=== PATIENT | female | born 1940 | race Asian ===

== ENCOUNTER 2017-02-08 22:13 | Emergency (ER) | payer MEDICARE ==
[~2017-02-08] VITALS: Ht 165.1 cm; Wt 63.5 kg
[~2017-02-08 22:13] MED LIST: ACTOS15 MG ORAL; ATORVASTATIN CA20 MG ORAL; CEPHALEXIN500 MG ORAL; CIPROFLOXACIN500 M2 ORAL; DONEPEZIL HCL10 MG ORAL; GLIPIZIDE5 MG ORAL; LISINOPRIL20 MG ORAL; METFORMIN HCL1000 M1 ORAL; NAMENDA10 MG ORAL; PRANDIN1 MG ORAL; UNOBMED
[2017-02-08 22:30] VITALS: BP 122/53
[2017-02-08] MEDS ORDERED: SandoSTATIN 50mcg Inj SUBQ ONE (22:30)
[2017-02-08] MEDS ORDERED: GABAPENTIN100 MG ORAL (22:41)
[2017-02-08] MEDS ORDERED: GLIPIZIDE5 MG ORAL (22:41)
[2017-02-08] MEDS ORDERED: OMEPRAZOLE40 M1 ORAL (22:41)
[2017-02-08] MEDS ORDERED: CIPROFLOXACIN500 M2 ORAL (22:41)
[2017-02-08] MEDS ORDERED: DICYCLOMINE HCL10 MG PO (22:41)
[2017-02-08] MEDS ORDERED: MACRODANTIN50 MG ORAL (22:41)
[2017-02-08] MEDS ORDERED: ACTOS30 MG ORAL (22:41)
[2017-02-08] MEDS ORDERED: DONEPEZIL HCL10 M2 ORAL (22:41)
[2017-02-08] MEDS ORDERED: ATORVASTATIN CA20 MG ORAL (22:41)
[2017-02-08] MEDS ORDERED: IBUPROFEN600 MG ORAL (22:41)
[2017-02-08] MEDS ORDERED: LISINOPRIL20 MG ORAL (22:41)
[2017-02-08] MEDS ORDERED: OXYBUTYNIN CHLO15 MG PO (22:41)
[2017-02-08] MEDS ORDERED: METFORMIN HCL500 M1 ORAL (22:41)
[2017-02-08] MEDS ORDERED: D5 1/2NS 1,000 ML IV SCH (22:45)
[2017-02-08] MEDS ORDERED: Nitroglycerin Subl 0.4mg tab SL PRN (22:45)
[2017-02-08] MEDS ORDERED: Ketorolac 30mg Inj IV PRN (22:45)
[2017-02-08] MEDS ORDERED: Mylanta II UD 30ml ORAL PRN (22:45)
[2017-02-08] MEDS ORDERED: Morphine Sulfate 2mg/ml Inj IVP PRN (22:45)
[2017-02-08] MEDS ORDERED: Albuterol/Ipratropium 3ml neb HHN PRN (22:45)
[2017-02-08] MEDS ORDERED: Miralax 17gm pkt ORAL PRN (22:45)
--- NOTE | 2017-02-09 00:06 | Emergency Room Report ---
History of Present Illness General Chief Complaint: Altered Level of Consciousness Source: Family Member Present Illness HPI Patient is a 68-year-old female brought in by EMS after increased altered level of consciousness. Patient prior history of dementia. Patient was diabetic with type 2 diabetes. She was noted to have a blood sugar in the 20s by EMS. Patient had been given IV dextrose with improvement in her sugar. The patient had been taking metformin as well as sulfonurea, and a glitizone medication for low blood sugar. The patient had been reportedly eating normally. She is intermittently catheterizing performed by her Allergies: Coded Allergies: No Known Allergies (Unverified , 04/20/14) Patient History Past Medical History: see triage record Now: No Reviewed Nursing Documentation: PMH: Agreed, PSxH: Agreed Nursing Documentation-PMH Past Medical History: No History, Except For Hx Cardiac Problems: No Hx Hypertension: Yes Hx Diabetes: Yes Hx Cancer: No Hx Gastrointestinal Problems: No History Of Psychiatric Problem: Yes - Alz. Hx Cerebrovascular Accident: Yes Hx Dementia: Yes - per , pt is getting worst Review of Systems All Other Systems: limited - by mental status Physical Exam Vital Signs Date Time Temp Pulse Resp B/P (MAP) Pulse Ox O2 Delivery O2 Flow Rate FiO2 02/08/17 22:14 97.9 64 14 125/74 98 Room Air Sp02 EP Interpretation: reviewed, normal General Appearance: normal inspection, well appearing, no apparent distress, alert, Chronically Ill Head: atraumatic ENT: normal ENT inspection, hearing grossly normal, normal voice Neck: normal inspection, full range of motion, supple, no bony tend Respiratory: normal inspection, lungs clear, normal breath sounds, no respiratory distress, no retraction, no wheezing Cardiovascular #1: regular rate, rhythm, no edema Gastrointestinal: normal inspection, normal bowel sounds, non tender, soft, no guarding, no hernia Genitourinary: no CVA tenderness Musculoskeletal: normal inspection, back normal, normal range of motion Neurologic: normal inspection, alert, oriented x3, responsive, 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 The differential diagnosis included wasn't limited to sulfa area overdose, dietary indiscretion, sepsis among others. Because of complexity of patient's case laboratory testing and imaging studies were ordered.The patient was given subcutaneous octreotide. She was noted to have a recurrent hypoglycemia was given IV dextrose. The patient was noted to have a chest x-ray one view interpreted by me with cardiomegaly with calcified aorta without evident infiltrate. CT the head read by radiology showed atrophic changes without evidence of acute hemorrhage or ventricular megaly. Patient was given IV dextrose. The patient was discussed with Dr. Ayush Castro for [facility] physician. Labs Test 02/08/17 23:45 White Blood Count 6.3 K/UL (4.8-10.8) Red Blood Count 3.97 M/UL (4.20-5.40) Hemoglobin 12.3 G/DL (12.0-16.0) Hematocrit 37.4 % (37.0-47.0) Mean Corpuscular Volume 94 FL (80-99) Mean Corpuscular Hemoglobin 31.0 PG (27.0-31.0) Mean Corpuscular Hemoglobin Concent 32.9 G/DL (32.0-36.0) Red Cell Distribution Width 11.9 % (11.6-14.8) Platelet Count 152 K/UL (150-450) Mean Platelet Volume 8.2 FL (6.5-10.1) Neutrophils (%) (Auto) 73.7 % (45.0-75.0) Lymphocytes (%) (Auto) 17.6 % (20.0-45.0) Monocytes (%) (Auto) 7.3 % (1.0-10.0) Eosinophils (%) (Auto) 0.7 % (0.0-3.0) Basophils (%) (Auto) 0.7 % (0.0-2.0) Sodium Level 133 MMOL/L (136-145) Potassium Level 4.8 MMOL/L (3.5-5.1) Chloride Level 103 MMOL/L (98-107) Carbon Dioxide Level 22 MMOL/L (21-32) Anion Gap 8 mmol/L (5-15) Blood Urea Nitrogen 24 mg/dL (7-18) Creatinine 0.7 MG/DL (0.55-1.30) Estimat Glomerular Filtration Rate mL/min (>60) Glucose Level 89 MG/DL (74-106) Lactic Acid Level 2.40 mmol/L (0.66-2.22) Calcium Level 9.0 MG/DL (8.5-10.1) Total Bilirubin 0.3 MG/DL (0.2-1.0) Aspartate Amino Transf (AST/SGOT) 31 U/L (15-37) Alanine Aminotransferase (ALT/SGPT) 25 U/L (12-78) Alkaline Phosphatase 57 U/L (46-116) Total Creatine Kinase 207 U/L (26-308) Creatine Kinase MB 2.8 NG/ML (0.0-3.6) Creatine Kinase MB Relative Index 1.3 Troponin I < 0.017 ng/mL (0.000-0.056) Total Protein 7.3 G/DL (6.4-8.2) Albumin 3.2 G/DL (3.4-5.0) Globulin 4.1 g/dL Albumin/Globulin Ratio 0.8 (1.0-2.7) EKG Diagnostic Results Rate: normal - 61 Rhythm: NSR ST Segments: no acute changes Rhythm Strip Diag. Results EP Interpretation: yes Rhythm: NSR, no PVC's, no ectopy Last Vital Signs Date Time Temp Pulse Resp B/P (MAP) Pulse Ox O2 Delivery O2 Flow Rate FiO2 02/08/17 22:14 97.9 64 14 125/74 98 Room Air Status: improved [facility] Condition: Stable Referrals: NON PHYSICIAN (PCP) Iglesia Cavanaugh Feb 09, 2017 00:06
[2017-02-09 00:16] LABS: BASOPHILS % (AUTO) 0.7 % (0.0-2.0); EOSINOPHILS % (AUTO) 0.7 % (0.0-3.0); LYMPHOCYTES % (AUTO) 17.6 % (20.0-45.0); MEAN CORPUSCULAR HGB CONC 32.9 G/DL (32.0-36.0); MEAN CORPUSCULAR VOLUME 94 FL (80-99); MEAN PLATELET VOLUME 8.2 FL (6.5-10.1); MONOCYTES % (AUTO) 7.3 % (1.0-10.0); NEUTROPHILS % (AUTO) 73.7 % (45.0-75.0); PLATELET COUNT 152 K/UL (150-450); RED BLOOD COUNT 3.97 M/UL (4.20-5.40); RED CELL DISTRIBUTION WIDTH 11.9 % (11.6-14.8); WHITE BLOOD COUNT 6.3 K/UL (4.8-10.8)
[2017-02-09 00:25] VITALS: BP 108/53
[2017-02-09 00:30] VITALS: BP 108/53
[2017-02-09 00:32] LABS: ANION GAP 8 mmol/L (5-15); CARBON DIOXIDE 22 MMOL/L (21-32); CHLORIDE 103 MMOL/L (98-107); CREATININE 0.7 MG/DL (0.55-1.30); POTASSIUM 4.8 MMOL/L (3.5-5.1); SODIUM 133 MMOL/L (136-145)
[2017-02-09 00:44] LABS: ALANINE AMINOTRANSFERASE 25 U/L (12-78); ALBUMIN/GLOBULIN RATIO 0.8 (1.0-2.7); ASPARTATE AMINO TRANSFERASE 31 U/L (15-37); CKMB 2.8 NG/ML (0.0-3.6); TOTAL PROTEIN 7.3 G/DL (6.4-8.2)
[2017-02-09 00:52] LABS: REFLEX LACTIC ACID YES OR NO YES
[2017-02-09] MEDS ORDERED: NovoLOG Insulin Flexpen SUBQ SCH (06:30)
[2017-02-09] MEDS ORDERED: Donepezil 10mg tab ORAL SCH (09:00)
[2017-02-09] MEDS ORDERED: Memantine 10mg tab ORAL SCH (09:00)
[2017-02-09] MEDS ORDERED: Heparin 5000 units/ml inj SUBQ SCH (09:00)
[2017-02-09] MEDS ORDERED: Lisinopril 20mg tab ORAL SCH (09:00)
--- NOTE | 2017-02-09 09:44 | Diagnostic Imaging Report ---
Indication: Altered mental status Technique: Contiguous 5 mm thick transaxial imaging of the head obtained in a Siemens Sensation [address] scanner. Soft tissue and bone windows generated. Automatic Exposure Control was utilized. Total Dose length Product (DLP): [address] Dose Index Volume (CTDIvol): 70.38, 0.15 mGy Comparison: 04/22/14 Findings: There is moderate prominence of the ventricles, basal cisterns, and cerebral sulci consistent with atrophy. Moderate, nonspecific, white matter hypoattenuation is noted throughout the brain consistent with chronic small vessel disease. There is no midline shift, edema, acute hemorrhage, mass effect, or abnormal extra-axial fluid collections. Bones and extra osseous soft tissues are unremarkable. Impression: No acute intracranial bleed, mass effect or edema. Moderate atrophy of the brain. Evidence of chronic small vessel disease involving white matter tracts. [facility] has communicated the preliminary results to the Emergency Department. Their findings are largely concordant with this report. The CT scanner at [facility] is accredited by the [employer] and the scans are performed using dose optimization techniques as appropriate to a performed exam including Automatic Exposure control.
--- NOTE | 2017-02-09 10:52 | Diagnostic Imaging Report ---
Indication: Dyspnea Comparison: None A single view chest radiograph was obtained. Findings: There is enlargement of the cardiac silhouette with pulmonary vascular redistribution and prominence, hazy vessel margins and the suggestion of interstitial edema consistent with CHF. The bones are osteopenic. There is azygos vein is quite prominent. Followup for this is recommended. Impression: CHF suspected. Prominence in the area of the azygos vein more than expected from distention to the increasing intravascular volume. Adenopathy not excluded. Chest x-ray followup is recommended. CT may be needed.
--- NOTE | 2017-02-09 18:19 | Cardiology Report ---
APPROVED REPORT EKG Measurement Heart [id number] Normal sinus rhythm Normal ECG
== END 2017-02-09 00:30 | disposition short-term general hospital (02) ==
LOC: EDBD 22:13 → EDUNIT# 22:13 → EMR 22:28
DX: E11.649 Type 2 diabetes mellitus with hypoglycemia without coma (principal); I10 Essential (primary) hypertension; R41.82 Altered mental status, unspecified; G31.9 Degenerative disease of nervous system, unspecified
CPT/HCPCS: 36415; 70450; 71010; 80053; 82550; 82553; 83605; 84484; 85025; 87040; 93005; 99285; J1815; J2354